=== PATIENT | female | born 1930 | race Caucasian/White ===

== ENCOUNTER → 2016-07-24 | Outpatient (REF) | payer MEDICARE, BC | LOC: M SFHCCLAY 07:19 | PROVIDERS: ATTEND Family Medicine | DX: E11.9 Type 2 diabetes mellitus without complications (principal); E78.2 Mixed hyperlipidemia ==

== ENCOUNTER 2016-11-23 09:09 | Inpatient (IN) | payer MEDICARE, BC ==
[~2016-11-23] VITALS: Ht 167.6 cm; Wt 75.3 kg
[2016-11-23] MEDS ORDERED: OMEP40CA2 PO (09:19)
[2016-11-23] MEDS ORDERED: TRIA37.5 PO (09:19)
[2016-11-23] MEDS ORDERED: ALLO10TA PO (09:19)
[2016-11-23] MEDS ORDERED: NS 500 ML IV ONE (10:00)
[2016-11-23 10:02] LABS: BASO % 0.7 % (0.0-1.0); EOS # 0.1 K/mm3 (0.0-0.50); EOS % 1.1 % (0.0-3.0); LARGE UNSTAINED CELL # 0.1 K/mm3 (0.0-0.4); LARGE UNSTAINED CELL % 1.7 % (0.0-4.0); LYMPH # 1.3 K/mm3 (1.5-4.5); LYMPH % 20.8 % (24.0-44.0); MEAN CORPUSCULAR HEMOGLOBIN 30.4 pg (27.0-33.0); MEAN CORPUSCULAR HGB CONC 33.3 g/dl (32.0-36.5); MEAN CORPUSCULAR VOLUME 91.2 fl (80.0-96.0); MONO # 0.3 K/mm3 (0.0-0.8); MONO % 5.9 % (0.0-5.0); NEUTROPHILS % 69.8 % (36.0-66.0); PLATELET COUNT, AUTOMATED 177 k/mm3 (150-450); RED CELL DISTRIBUTION WIDTH 14.3 % (11.5-14.5); WHITE BLOOD COUNT 5.7 K/mm3 (4.0-10.0)
[2016-11-23 10:08] LABS: INR 1.01
[2016-11-23 10:18] LABS: ALBUMIN 3.8 GM/DL (3.2-5.2); ALBUMIN/GLOBULIN RATIO 1.19 (1.00-1.93); BILIRUBIN,DIRECT 0.1 MG/DL (0.0-0.2); BILIRUBIN,TOTAL 0.4 MG/DL (0.2-1.0); CALCIUM LEVEL 9.8 MG/DL (8.8-10.2); CREATININE FOR GFR 1.29 MG/DL (0.55-1.02); GLOMERULAR FILTRATION RATE 41.5 (>32); POTASSIUM SERUM 3.9 MEQ/L (3.5-5.1)
[2016-11-23] MEDS ORDERED: ISOVUE-370 76% 100ML VIAL (Q9967) As Ordered ONE (10:21)
--- NOTE | 2016-11-23 11:28 | REP ---
CT abdomen and pelvis with IV but without oral contrast: History: Right lower quadrant pain. Dark stools. Comparison CT study August 03, 2006. CT contrast dose: 100 ml of Isovue [address] findings: Digital court monitor radiograph is unremarkable. The patient is rotated somewhat to the right. Cardiomegaly is observed. No pleural or pericardial effusion is seen. The liver and spleen are normal in size, homogeneous in texture. No adrenal lesion is seen. No pancreatic abnormality is observed. The gallbladder is unremarkable. There is a large descending duodenal diverticulum. There are bilateral renal cortical cysts. The largest of these is in the upper pole right kidney measuring 2.4 cm in diameter. No retroperitoneal mass or adenopathy is seen. Small and large intestinal bowel loops are normal in the abdomen. In the pelvis, there is extensive left colonic diverticulosis without CT evidence of diverticulitis. Scattered diverticulosis is seen in the descending and transverse segments of the colon. There is diverticulosis of the ascending colon as well. Uterus is surgically absent. No adnexal or ovarian abnormality is seen. The appendix is not directly visualized but there is no CT evidence to suggest appendicitis or other etiology of inflammation. No abdominal wall defect is seen. Bone window settings show degenerative lumbar spine changes. Impression: Large descending duodenal diverticulum. Very small hiatal hernia. Small renal cortical cysts. Pancolonic diverticulosis without CT evidence of diverticulitis. Post hysterectomy. Appendix not directly visualized but no inflammatory change in the right lower quadrant. Signed by Jay Chong MD 11/23/2016 12:51 P
[2016-11-23] MEDS ORDERED: PANTOPRAZOLE 40MG INJ (PROTONIX) (C9113) IV ONE (13:15)
[2016-11-23] MEDS ORDERED: SUCRALFATE 1 GM TAB PO ONE (13:15)
[2016-11-23] MEDS ORDERED: OMEP20CA3 PO (13:20)
[2016-11-23] MEDS ORDERED: ZYLO300T4 PO (13:20)
[2016-11-23] MEDS ORDERED: ACETAMINOPHEN TAB 650MG DOSE (2X325MG) PO PRN (13:30)
[2016-11-23] MEDS ORDERED: ONDANSETRON 4MG/2ML VIAL (J2405) IV PRN (13:30)
[2016-11-23 14:00] LABS: MEAN CORPUSCULAR HEMOGLOBIN 31.3 pg (27.0-33.0); MEAN CORPUSCULAR HGB CONC 34.1 g/dl (32.0-36.5); MEAN CORPUSCULAR VOLUME 91.8 fl (80.0-96.0); RED CELL DISTRIBUTION WIDTH 14.4 % (11.5-14.5); WHITE BLOOD COUNT 5.1 K/mm3 (4.0-10.0)
--- NOTE | 2016-11-23 14:27 | HPE ---
DATE OF ADMISSION: 11/23/2016 PRIMARY CARE PROVIDER: Dr. Pugh VIDEO RENTAL CLERK: Dr. Em and Dr. Pederson has also done endoscopies on her before. CHIEF COMPLAINT: Dizziness. HISTORY OF PRESENT ILLNESS: This is an 86-year-old who has not felt well for over a week. She has been feeling dizzy which she describes as lightheadedness. She felt as though she might pass out, but hasn't. She has been generally weak. She has been passing very black and smelly stools and then today passed some bright red blood per rectum. She came to the emergency department for evaluation. She had heme negative stool from below and was noted to have EKG changes. I was called for admission. Socially, she walks with a walker and does not drink any significant amount of alcohol. She does not smoke. Her physical activity is limited by left ankle weakness. PAST SURGICAL HISTORY: Notable for a hysterectomy thirty years ago. PAST MEDICAL HISTORY: Notable for hypertension, arthritis, gout, diabetes, hyperlipidemia. She has no known drug allergies. MEDICATIONS AT HOME (are listed as): - allopurinol 300 mg daily - hydrochlorothiazide/triamterene one tablet by mouth twice daily - omeprazole 40 mg by mouth daily She does not take aspirin on a daily basis. FAMILY HISTORY: Unremarkable due to advanced age. REVIEW OF SYSTEMS: Notable for no fever. She did have a cough a few weeks ago which was treated with apparently amoxicillin which has resolved. No headache. No visual changes. She does wear corrective lenses and upper and lower denture plates. No chest pain. No orthopnea. No paroxysmal nocturnal dyspnea. No palpitations. No abdominal pain. She is somewhat irregular in her bowel movements which is constant. There has been no change in her exercise tolerance. Otherwise is unremarkable. PHYSICAL EXAMINATION: Temperature 98 degrees. Pulse 68. Respiratory rate 16. Blood pressure 137/69. 97% on room air. Ins and outs notable for not yet being recorded. Body mass index (BMI) is 26. She is awake and appropriately interactive. Good historian. Head normocephalic. Sinuses are nontender. Pupils equally round and reactive. Anicteric. Not injected. Mucous membranes are moist. Neck supple. No obvious elevation in jugular venous pulse (JVP). Breathing is symmetrical. I:E ratio 1:3. No wheezes, rales or rhonchi. Speaking in complete sentences. No accessory muscle use. No costovertebral angle (CVA) tenderness. No sacral edema. Heart is distant sounding. Normal S1, S2. I appreciate no murmur, rub or gallop. Pulses are 2+. Capillary refill is less than 2 seconds. Abdomen soft, doughy, nontender to deep palpation. There are active bowel sounds. No lower extremity edema. She is moving all four extremities. Cranial nerves II-XII are grossly intact. She has normal mood and affect. White cell count 5.7, hemoglobin 13.8 and platelets of 177. INR 1.01. BUN 25, creatinine 1.29. Baseline creatine is probably 1.17. CK and troponin are within normal limits. EKG is compared to prior and would appear to show Q waves in the septum and ST elevations in the anterior region, which is new when compared to previous and is variable over the course of the day. ASSESSMENT: 86-year-old with suspected upper gastrointestinal (GI) bleed and possible subacute cardiac ischemic event. PLAN: 1. Cardiac. The patient would appear to have had at some time within the last week or two a cardiac event. Will get a 2D echocardiogram. The case has been discussed with the interventionalist, Dr. Rutledge, who has declined transfer and is suggesting medical management. I have consulted Dr. Cano for assistance in her care. Complicating her presentation is GI bleed. At this point, I am unsure whether her GI bleed is worsening based on her presentation, so will at this point not give aspirin, CYNDY inhibitor, or statin type drug and will monitor her clinically on telemetry as she is asymptomatic and does not appear to be worsening from a cardiac standpoint, but presented with more complaint of worsening bleeding from below. 2. GI bleed. The patient is started on Protonix and sucralfate. Role for upper endoscopy is somewhat limited based on her cardiac event which is suspected. Will pursue medical management in this regard as well. Assuming that her GI bleed and serial hemoglobin and hematocrit remain somewhat stable, we can proceed to more aggressive management of her cardiac event. 3. The patient has gout. Can continue her allopurinol. 4. The patient has hypertension. Likely her medications will need to be changed. 5. Deep vein thrombosis (DVT) prophylaxis with mechanical. I did discuss this case at length with family at bedside.
--- NOTE | 2016-11-23 14:31 | REP ---
PORTABLE CHEST X-RAY: SINGLE VIEW. HISTORY: Abnormal EKG. COMPARISON CHEST X-RAY: 09/04/2010 FINDINGS: EKG monitoring electrodes overlie the chest. The heart is moderately enlarged. It appears more prominent than on the 2010 prior study. Pulmonary vasculature is cephalized and somewhat indistinct. There is no evidence of pleural effusion or pulmonary edema. IMPRESSION: Moderate cardiomegaly. Pulmonary vascular cephalization consistent with some degree of CHF. No evidence of pleural effusion or pulmonary edema. Signed by Jay Chong MD 11/23/2016 04:43 P
[2016-11-23 15:30] VITALS: BP 143/70
[2016-11-23] MEDS ORDERED: SLF 3 ML SYR IV PRN (16:00)
[2016-11-23] MEDS: SUCRALFATE 1 GM TAB PO SCH ×2 (17:24→20:07)
[2016-11-23 19:44] VITALS: BP 118/60
--- NOTE | 2016-11-23 20:06 | CR ---
DATE: 11/23/2016 REFERRING PHYSICIAN: Dr. Markell Escalona INDICATION: Abnormal ECG. HISTORY OF PRESENT ILLNESS: Mrs. Marshall was brought to emergency room by her family earlier today because she had an episode of dizziness. Unfortunately I was not able to get any good description of what actually happened. It looks like the patient is living alone and she was doing some chores and suddenly got dizzy. She called her family and they brought her to the ER. She does think that she had some black stools lately and recently also occasionally red blood in her stools. On presentation to the ER, her CBC was unremarkable but 12-lead ECG reveals presence of anterior wall Q-waves with associated ST-segment elevations. She denies any chest discomfort today or in recent past. She tells me that she has to "slow down" because she is just not able to be as active as she used to be. She does admit that she was getting lightheaded to the point that she thought she might pass out but she never did. She denies any prior history of coronary artery disease. SURGICAL HISTORY: Positive for hysterectomy. PAST MEDICAL HISTORY: Positive for hypertension, arthritis, gout, type 2 diabetes and dyslipidemia. She also has a history of GI evaluation for rectal bleeding. OUTPATIENT MEDICATIONS: - allopurinol 300 daily - HCTZ/triamterene twice a day - omeprazole 40 mg a day FAMILY HISTORY: No longer relevant considering her advanced age. SOCIAL HISTORY: The patient is second time around, her second in June of this year. She never smoked. She used to work as a cook. REVIEW OF SYSTEMS: She denies any recent fever, chills, nausea, vomiting, diarrhea, shortness of breath or chest pain. She does report that she has intermittent episodes of dizziness but unfortunately, she is not able to describe under what circumstances it occurs. She does admit that she has occasional black stools and occasionally also has red blood in her stools. The rest of review of systems is negative or as per history of present illness (HPI). PHYSICAL EXAMINATION: Mrs. Marshall is an elderly lady. She is in good spirits and denies currently any symptoms. She can provide reasonably good history even though details are limited. Her vital signs: Blood pressure is 143/70, heart rate has been in 70s and 80s. She is afebrile. Saturation 97-98% on room air. Her JVP is not elevated. Lungs are clear to auscultation bilaterally with good air movement. Heart exam reveals somewhat muffled heart sounds related to her obesity. I do not appreciate any gallop, rub or murmur. JVP is not elevated and there are not carotid bruits. Abdomen is obese but soft. I do not appreciate any organomegaly, guarding. Bowel sounds are present. Extremities are free of edema. Peripheral pulses are of good quality. Neurologically she is alert and oriented and appropriate. LABORATORY DATA: Her CBC is normal. Basic metabolic panel revealed potassium 3.9, BUN 25, creatinine 1.3 for GFR 42, glucose 84, lactic acid 1.3, normal liver function tests, normal cardiac enzymes times two, albumin is 3.8. TSH 1.5. ECG as per HPI. She had CT of the abdomen and pelvis which reveals large duodenal diverticulum, small hiatal hernia and evidence for diverticulosis. She also had a chest x-ray that reveals cardiomegaly but no obvious congestive heart failure. ASSESSMENT/PLAN: Mrs. Marshall is an elderly woman without prior history of coronary artery disease. She presents for an episode of dizziness that is poorly described and complains about dark stools followed by some red blood in her stools. Somewhat coincidentally she is found to have fairly abnormal ECG indicative of probably recent anterior wall myocardial infarction, but she denies any event that would resemble myocardial infarction and denies any chest pain today or recently and her cardiac enzymes have been negative. I do agree that it is possible that this possibly could represent an aneurysm after VT. Her previous ECG from 2014 did not have similar abnormalities. I would monitor on telemetry. Will obtain an echocardiogram. I do not believe that she should receive aspirin because she had blood in her stools even though hemoglobin is fine. I would give her a statin and further management based on her clinical course.
[2016-11-23] MEDS: ATORVASTATIN 20 MG TAB PO SCH (20:07)
[2016-11-23] MEDS: SLF 3 ML SYR IV SCH (20:07)
[2016-11-23] MEDS: PANTOPRAZOLE 40MG INJ (PROTONIX) (C9113) IV SCH (20:07)
--- NOTE | 2016-11-23 20:54 | ECHO ---
DATE OF PROCEDURE: 11/23/2016 REFERRING PHYSICIAN: Dr. Escalona. INDICATION: Abnormal ECG. HEIGHT: 168 cm WEIGHT: 74 kg DIMENSIONS: IVS: 1.2 LV: 5.5 LVPW: 1.2 LA: 4.0 Aorta: 3.3 FINDINGS: The study is of good technical quality. Left ventricle is of normal size. There is extensive wall motion abnormality involving mid and distal septum, the whole apex, distal anterior wall, distal lateral wall and distal inferior wall. These segments are akinetic with thinning forming aneurysm. Overall estimated LV systolic function is in neighborhood of 20-25%. Right ventricle does not appear grossly enlarged is normally contractile. Left atrium is severely enlarged. Right atrium is probably normal size. Aortic valve is sclerotic and has three cusp and grossly preserved mobility. There are degenerative abnormalities of mitral valve with thickening of mitral leaflets and mitral annular calcifications. Mobility is preserved. Tricuspid valve appears normal. Pulmonic valve was not well seen. No pericardial effusion is noted. Inferior vena cava is normal size. Aortic root appears normal. Aortic arch and abdominal aorta were not well seen. Doppler interrogation was no aortic stenosis and mild insufficiency. There is approximately moderate mitral insufficiency likely related to left ventricle (LV ) dysfunction. There is mild tricuspid insufficiency. Calculated pulmonary artery pressure is on upper limits of normal. Values or mildly elevated. Mitral inflow pattern and tissue Doppler imaging of mitral annulus reveal grade 1 diastolic dysfunction. CONCLUSIONS: 1. Study is of good technical quality. 2. Normal LV size with segmental wall motion abnormality as noted above and large anteroapical aneurysm. 3. Normal right ventricle (RV) size. 4. Mild aortic insufficiency. 5. 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 6. Normal central venous pressure (CVP). 7. Normal mildly elevated pulmonary artery pressure under COMMENT: Subacute bacterial endocarditis (SBE) prophylaxis is not recommended. 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 MTDD
[2016-11-23 21:00] LABS: MEAN CORPUSCULAR HEMOGLOBIN 31.3 pg (27.0-33.0); MEAN CORPUSCULAR VOLUME 89.4 fl (80.0-96.0); RED CELL DISTRIBUTION WIDTH 14.3 % (11.5-14.5); WHITE BLOOD COUNT 5.6 K/mm3 (4.0-10.0)
[2016-11-23] MEDS: CARVedilol 3.125 MG TAB PO SCH (21:46)
[2016-11-23 23:28] VITALS: BP 116/58
[2016-11-24] MEDS: RAMELTEON 8 MG TAB (ROZEREM) PO SCH ×2 (01:57→22:46)
[2016-11-24 03:03] VITALS: BP 114/61
[2016-11-24 05:38] LABS: MEAN CORPUSCULAR HEMOGLOBIN 31.1 pg (27.0-33.0); MEAN CORPUSCULAR HGB CONC 33.9 g/dl (32.0-36.5); MEAN CORPUSCULAR VOLUME 91.6 fl (80.0-96.0); RED CELL DISTRIBUTION WIDTH 14.2 % (11.5-14.5)
[2016-11-24 05:52] LABS: CALCIUM LEVEL 9.1 MG/DL (8.8-10.2); CREATININE FOR GFR 1.08 MG/DL (0.55-1.02); MAGNESIUM LEVEL 2.2 MG/DL (1.8-2.4); POTASSIUM SERUM 3.5 MEQ/L (3.5-5.1)
[2016-11-24] MEDS: SLF 3 ML SYR IV SCH ×3 (06:23→20:55)
[2016-11-24] MEDS: SUCRALFATE 1 GM TAB PO SCH ×4 (06:23→20:57)
[2016-11-24 08:00] VITALS: BP 111/67
--- NOTE | 2016-11-24 08:06 | ECGEPIP ---
Stationary ECG Study [facility] - ED Test Date: 2016-11-23 Pat Name: REKHA RAY Department: Room: - Gender: F Chief Engineer'S Helper: rn : 1930 Requested By: RADHA Gallagher Order Number: [id number] Reading MD: Zoe West Measurements Intervals [place] Rate: 70 P: 26 ME: 157 QRS: -3 QRSD: 102 T: 103 QT: 390 QTc: 421 Interpretive Statements SINUS RHYTHM POSSIBLE LEFT VENTRICULAR HYPERTROPHY POSSIBLE ANTEROSEPTAL MYOCARDIAL INFARCTION, ACUTE, CLINICAL CORRELATION NO PRIOR FOR COMPARISON Electronically Signed On 11-24-2016 8:06:03 EDT by Zoe West
--- NOTE | 2016-11-24 08:07 | ECGEPIP ---
Stationary ECG Study [facility] - ED Test Date: 2016-11-23 Pat Name: REKHA RAY Department: Room: - Gender: F Patient Relations Specialist: : 1930 Requested By: RADHA Gallagher Order Number: [id number] Reading MD: Zoe West Measurements Intervals [place] Rate: 72 P: 55 DC: 153 QRS: 7 QRSD: 118 T: 100 QT: 415 QTc: 456 Interpretive Statements SINUS RHYTHM PROBABLE INFERIOR MYOCARDIAL INFARCTION, PROBABLY OLD ANTEROLATERAL MYOCARDIAL INFARCTION, ACUTE, SEEN 10:16 Electronically Signed On 11-24-2016 8:06:40 EDT by Zoe West
[2016-11-24] MEDS: PANTOPRAZOLE 40MG INJ (PROTONIX) (C9113) IV SCH ×2 (09:13→20:55)
[2016-11-24] MEDS: CARVedilol 3.125 MG TAB PO SCH ×2 (09:13→20:57)
[2016-11-24] MEDS: ASPIRIN 81 MG ENTERIC TAB PO SCH (09:13)
--- NOTE | 2016-11-24 11:06 | IPN ---
DATE: 11/24/2016 I saw Mrs. Marshall today on rounds. Her family was at her bedside, her son and [id number]. The patient had a good night. She denies any problems. She did not have any bowel movements. Blood pressure 111/67 and has been in similar range throughout. Heart rate mostly in the 60s and 70s. She is afebrile. Saturation 98% on room air. She did have brief run of accelerated idioventricular rhythm. Her JVP is not elevated. Lungs are clear with good air movement. Heart exam reveals regular rhythm. I do not appreciate any gallop, rub or murmur. Abdomen is obese, but soft and nontender. There is no peripheral edema. Neurologically she is intact. Laboratory lobo, normal CBC, normal basic metabolic panel, cardiac enzymes stayed negative and her lipid panel is excellent. ASSESSMENT/PLAN: Mrs. Marshall is an 86-year-old female who presents with some rectal bleeding and episodes of dizziness. 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 It is likely that she suffered myocardial event. I suspect at least several weeks if not several months ago. She has no recollection though of any event that would resemble myocardial infarction (ND). I explained to her, and her son and [id number], that unfortunately because there is already extensive damage, it is unlikely that pursuing cardiac catheterization would make a change in her prognosis. I think we should give her the best possible medical therapy. She is on aspirin, statin and a very small dose of Coreg. Her blood pressure is relatively soft and consequently, I would not necessarily give her CYNDY inhibitor of additional doses of medications. Considering her advanced age and probably life expectancy that is not very long, I do not see an indication for defibrillator placement. JOHANNA
[2016-11-24 12:00] VITALS: BP 113/58
--- NOTE | 2016-11-24 12:06 | ECGEPIP ---
Stationary ECG Study [facility] Test Date: 2016-11-24 Pat Name: REKHA RAY Department: Room: [place] [address] Gender: F Nuclear Test Technician: : 1930 Requested By: SKYLAR Ansari Order Number: [id number] Reading MD: Nader Cano Measurements Intervals [place] Rate: 65 P: 47 GA: 156 QRS: 5 QRSD: 112 T: 124 QT: 430 QTc: 449 Interpretive Statements SINUS RHYTHM ANTEROLATERAL MYOCARDIAL INFARCTION, PROBABLY RECENT NO CHANGE SINCE 11/23/16 Electronically Signed On 11-24-2016 12:06:18 EDT by Nader Cano
[2016-11-24 16:00] VITALS: BP 107/59
--- NOTE | 2016-11-24 18:03 | IPN ---
DATE: 11/24/2016 SUBJECTIVE: The patient is seen and examined in the room today. During encounter, the patient does not have any complaint about any symptoms. The patient stated prior to hospitalization, the patient was painting a porch that resulted in her dizziness. The patient had a colonoscopy done in the past, which the reason why is Dr. Pederson which was in December 2010. At the time, the dictation showed diverticulosis of entire colon. Since admission, the patient does not have any bowel movements, but the patient had a history of blood in the stool approximately 3-4 days ago. OBJECTIVE: VITAL SIGNS: Temperature is 96.8, pulse is 68, respirations 18, blood pressure 111/67, pulse oximetry is 98% on room air. GENERAL: No sign of acute distress, alert and oriented times three. HEENT: Normocephalic, atraumatic. Extraocular motor grossly intact. CARDIOVASCULAR: Positive S1, S2. Regular rate. LUNGS: Clear to auscultation bilaterally. ABDOMEN: Soft, nontender, nondistended. Bowel sounds present. EXTREMITIES: No edema, no sign of cyanosis. LABORATORY DATA: WBC is five, hemoglobin 12.5, hematocrit 36.7, platelet count is 173. Sodium is 137, potassium 3.9, chloride 99, carbon dioxide 28, BUN 16, creatinine 1.08, GFR 51, fasting glucose 96, calcium is 9.1. Magnesium 2.2. Troponin I is 0.02 times four sets. Triglycerides is 126, total cholesterol is 158, LDL is 78.8, HDL is 54. ASSESSMENT AND PLAN: 1. History of myocardial events. Troponin has been negative and suggests that the insult occurred many weeks ago. The patient presented with episode of dizziness. The electrocardiogram (EKG) and other diagnostic tests, the patient shown to have anterior apical aneurysm with severely reduced left ventricular dysfunction. Senior Commercial Loan Officer Dr. Cano has been consulted. We appreciate his assistance. He suspects the insult was a long time ago and the damage may be reversible. The patient is on aspirin, statin and Coreg. Due to the hypotension, angiotension-converting enzyme (CYNDY) inhibitor is on hold. At this moment, the patient does not benefit from cardiac catheterization. Continue pursuing with medical management. 2. Acute gastrointestinal (GI) bleed. Per patient, the patient noticed some blood per rectum. The patient is on Protonix and sucralfate. The patient had a colonoscopy performed by Dr. Pederson in 2010. According to that report, which showed the patient has diverticulosis of the whole colon. At that time, the patient was recommended to followup with endoscopist in two weeks. We will follow with the patient to see if there is any more colonoscopy that is not done in our facility. Will continue trending hemoglobin and hematocrit every six hours. At this moment, there is no significant drop in hemoglobin and hematocrit in the last 12-24 hours. 3. Gout. On allopurinol. 4. Hypertension. Currently the patient is mildly hypertensive. The patient is on Coreg. 5. Diabetes. At home, the patient is not taking any diabetic medications. The last two mornings, fasting glucose numbers are within normal range. The patient had A1c of 6.2 in July 2016. We will follow with repeat A1c. The patient's diabetes may have been resolved. Followup with A1c tomorrow morning. 6. Acute kidney injury. Improving. 7. Deep venous thrombosis (DVT) prophylaxis. Due to suspicion for acute GI bleed, no anticoagulation is warranted at this moment. The patient is on thromboembolism deterrent stockings (TEDs) and sequential compression devices.
[2016-11-24 20:00] VITALS: BP 108/57
[2016-11-24] MEDS: ATORVASTATIN 20 MG TAB PO SCH (20:55)
[2016-11-25 04:36] VITALS: BP 106/56
[2016-11-25 05:41] LABS: MEAN CORPUSCULAR HEMOGLOBIN 31.1 pg (27.0-33.0); MEAN CORPUSCULAR HGB CONC 34.2 g/dl (32.0-36.5); MEAN CORPUSCULAR VOLUME 91.1 fl (80.0-96.0); RED CELL DISTRIBUTION WIDTH 14.3 % (11.5-14.5); WHITE BLOOD COUNT 5.4 K/mm3 (4.0-10.0)
[2016-11-25 06:11] LABS: CALCIUM LEVEL 9.4 MG/DL (8.8-10.2); CREATININE FOR GFR 1.01 MG/DL (0.55-1.02); GLOMERULAR FILTRATION RATE 55.1 (>32); MAGNESIUM LEVEL 2.1 MG/DL (1.8-2.4); POTASSIUM SERUM 3.5 MEQ/L (3.5-5.1)
[2016-11-25] MEDS: SUCRALFATE 1 GM TAB PO SCH (06:22)
[2016-11-25] MEDS: SLF 3 ML SYR IV SCH (06:22)
[2016-11-25 08:00] VITALS: BP 124/61
[2016-11-25] MEDS: PANTOPRAZOLE 40MG INJ (PROTONIX) (C9113) IV SCH ×2 (09:00→09:36)
[2016-11-25 09:36] VITALS: BP 124/61
[2016-11-25] MEDS: ASPIRIN 81 MG ENTERIC TAB PO SCH (09:36)
[2016-11-25] MEDS: CARVedilol 3.125 MG TAB PO SCH (09:36)
[2016-11-25] MEDS ORDERED: SUCR1TA PO (10:05)
[2016-11-25] MEDS ORDERED: ATOR1TAB21 PO (10:05)
[2016-11-25] MEDS ORDERED: CARV3.12 PO (10:05)
[2016-11-25] MEDS ORDERED: PROT1TAB2 PO (10:05)
[2016-11-25] MEDS ORDERED: ASPI81TAEC PO (10:05)
--- NOTE | 2016-11-25 16:15 | DSES ---
DATE OF ADMISSION: 11/23/2016 DATE OF DISCHARGE: 11/25/2016 PRIMARY CARE PROVIDER: Dr. Pugh. CONSULTANTS: [employer] St[employer]cher, Dr. Cano. PROCEDURES: None. COMPLICATIONS: None. ADMISSION/DISCHARGE DIAGNOSES: 1. History of myocardial infarction. 2. Active gastrointestinal (GI) bleed. 3. Significant colonic diverticulosis. 4. Gout. 5. Hypertension. 6. History of diabetes. 7. Acute kidney injury. 8. Systolic congestive heart failure with ejection fraction (EF) of 20-25%. HOSPITALIZATION COURSE: The patient is an 86-year-old female who presented to [facility] on 11/23/2016, with dizziness. Diagnostic workup was performed, including electrocardiogram (EKG) and echocardiogram. The patient was shown to have findings suggestive of history of cardiac injury. [employer] Stretcher, Dr. Cano, was consulted. Cardiac enzymes were also ordered and followed. The patient was placed on nothing by mouth and intravenous (IV) fluids to monitor for the GI bleed. Hemoglobin and hematocrit were also followed every six hours. Later, serial troponins all came back negative, and the echocardiogram report showed the patient has congestive heart failure and some sign of prior myocardial infarction. With medical management, the patient's hemoglobin and hematocrit have been stable. No sign of active bleeding, and the patient's diet is advanced. The patient was cleared by physical therapy and discharged on 11/25/2106. The patient's record is reviewed. The patient does have a colonoscopy on December 12, 2010. The colonoscopy report showed diverticulosis of the entire examined colon, and the patient was recommended to followup with her GI specialist, Dr. Em. However, the patient did not have followup. OBJECTIVE: VITAL SIGNS: Temperature 96.8, pulse is 69, respirations 18, blood pressure 79904, pulse oximetry is 97% on room air. LABORATORY DATA: WBC is 5.4, hemoglobin 12.8, hematocrit 37.1, platelet count 176. Sodium is 133, potassium 3.5, chloride 96, carbon dioxide 30, BUN 14, creatinine 1.01. GFR is 55.1, fasting glucose 101. A1c is 6.4. Calcium 9.4, magnesium 2.1. Troponin I is 0.02 times four sets. Triglycerides 126, total cholesterol 158, LDL is 78.8, HDL is 54. TSH is 1.49. PT 13.4, INR is 1.01. IMAGING: CT of the abdomen and pelvis with IV contrast only on 11/23/2016, showed large descending duodenal diverticulum. Very small hiatal hernia. Small renocortical cyst. Pancolonic diverticulosis with CT image of diverticulitis. Chest x-ray on 11/23/2016, showed moderate cardiomegaly. Pulmonary vascular encephalization consistent with some degree of CHF. No evidence of pleural effusion or pulmonary edema. Echocardiogram on 11/23/2016, showed left ventricular systolic function between 20-25%. 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 DISCHARGE MEDICATIONS: - aspirin 81 mg by mouth daily - atorvastatin 40 mg by mouth at bedtime - carvedilol 3.125 mg by mouth twice a day - Protonix 40 mg by mouth daily - Carafate 1 gram by mouth before food and at bedtime - allopurinol 300 mg by mouth daily DISCHARGE INSTRUCTIONS: Discontinue lines. Discharge home. Activity as tolerated. Low-salt diet as tolerated. The patient should follow with her primary care provider, Ines in 1- 2 weeks. The patient needs to discuss the patient's history of GI bleed from pancolonic diverticulosis with provider. Her last scope was performed approximately eight years ago, and the patient did miss her appointment with the GI specialist for post-colonoscopy followup. The patient needs to discuss with her primary care provider regarding recent myocardial infarction episode. Based the diagnostic workup and history, the patient was not aware of that prior attack and the damage it was causing. The patient did have systolic congestive heart failure. The patient may benefit from cardiology outpatient followup. DISCHARGE CONDITION: Stable. DISCHARGE TIME: Greater than 30 minutes. MTDD
== END 2016-11-25 11:09 | disposition home or self-care (01) | DRG 314 ==
LOC: M ED 09:09 → M ED INP 13:16 → M PCU 15:12
PROVIDERS: ADMIT Internal Medicine; ATTEND Internal Medicine
DX: I25.3 Aneurysm of heart (principal); K57.31 Diverticulosis of large intestine without perforation or abscess with bleeding; I50.22 Chronic systolic (congestive) heart failure; N17.9 Acute kidney failure, unspecified; I11.0 Hypertensive heart disease with heart failure; M19.90 Unspecified osteoarthritis, unspecified site; M10.9 Gout, unspecified; I25.2 Old myocardial infarction; E11.9 Type 2 diabetes mellitus without complications; E78.5 Hyperlipidemia, unspecified; Z79.899 Other long term (current) drug therapy

== ENCOUNTER → 2017-01-25 | Outpatient (REF) | payer MEDICARE, BC ==
[~2017-01-25] MED LIST: ALLO10TA PO; ASPI81TAEC PO; ATOR1TAB21 PO; CARV3.12 PO; OMEP20CA3 PO; OMEP40CA2 PO; PROT1TAB2 PO; SUCR1TA PO; TRIA37.5 PO; ZYLO300T4 PO
== END ==
LOC: M SFHCCLAY 07:49
PROVIDERS: ATTEND Family Medicine
DX: E11.9 Type 2 diabetes mellitus without complications (principal); E78.2 Mixed hyperlipidemia

== ENCOUNTER 2017-03-04 12:21 | Day surgery (SDC) | payer MEDICARE, BC ==
[~2017-03-04] VITALS: Ht 167.6 cm; Wt 70.3 kg
[~2017-03-04 12:21] MED LIST changes: +LIDOCAINE 2% INJ 100 MG/5 ML SDV (FOR ANES.) As Ordered ONE; +PROPOFOL 200 MG/20 ML VIAL As Ordered ONE; +TRIA37.53 PO
[2017-03-04] MEDS ORDERED: NS 1,000 ML IV ONE (14:00)
--- NOTE | 2017-03-04 14:20 | ROOR ---
Patient Name: Court Marshall Procedure Date: 03/04/2017 1:54 PM Date of : 1930 Age: 86 Room: [facility] Gender: Female Note Status: Finalized Procedure: Total Colonoscopy to Cecum Indications: Last colonoscopy: 2006, Rectal bleeding Providers: Boris Em MD Referring MD: ASA MCPHERSON DO Requesting Provider: Medicines: Monitored Anesthesia Care Complications: No immediate complications. Procedure: Pre-Anesthesia Assessment: - The heart rate, respiratory rate, oxygen saturations, blood pressure, adequacy of pulmonary ventilation, and response to care were monitored throughout the procedure. The Colonoscope was introduced through the anus and advanced to the cecum, identified by appendiceal orifice and ileocecal valve. The colonoscopy was performed without difficulty. The patient tolerated the procedure well. The quality of the bowel preparation was poor. Findings: The perianal and digital rectal examinations were normal. External and internal hemorrhoids were found during retroflexion. The hemorrhoids were small and Grade I (internal hemorrhoids that do not prolapse). Scattered small-mouthed diverticula were found in the recto-sigmoid colon, sigmoid colon and descending colon. A moderate amount of stool was found in the entire colon, precluding visualization. The exam was otherwise without abnormality on direct and retroflexion views. Impression: - Preparation of the colon was poor. - External and internal hemorrhoids. - Diverticulosis in the recto-sigmoid colon, in the sigmoid colon and in the descending colon. - Stool in the entire examined colon. - The examination was otherwise normal on direct and retroflexion views. - No specimens collected. - The exam was otherwise normal to the cecum. Recommendation: - Patient has a contact number available for emergencies. The signs and symptoms of potential delayed complications were discussed with the patient. Return to normal activities tomorrow. Written discharge instructions were provided to the patient. - High fiber diet. - Discharge patient to home. - Continue present medications. - Repeat colonoscopy for symptoms only. - Return to referring physician. - The findings and recommendations were discussed with the patient's family. Boris Em MD Boris Em MD 03/04/2017 2:19:30 PM This report has been signed electronically. Number of Addenda: 0 Note Initiated On: 03/04/2017 1:54 PM Estimated Blood Loss: Estimated blood loss: none.
[2017-03-04 14:50] VITALS: BP 120/77
== END 2017-03-04 14:55 | disposition home or self-care (01) ==
LOC: M OPP 12:21
PROVIDERS: ATTEND Internal Medicine Gastroenterology
DX: K62.5 Hemorrhage of anus and rectum (principal); Z86.010 Personal history of colon polyps; K64.0 First degree hemorrhoids; K57.30 Diverticulosis of large intestine without perforation or abscess without bleeding; I25.2 Old myocardial infarction; I10 Essential (primary) hypertension; R12 Heartburn; K21.9 Gastro-esophageal reflux disease without esophagitis; K29.70 Gastritis, unspecified, without bleeding; Z78.0 Asymptomatic menopausal state; Z79.899 Other long term (current) drug therapy

== ENCOUNTER → 2017-07-24 | Outpatient (REF) | payer MEDICARE, BC ==
[2017-07-24 17:23] LABS: ALBUMIN 3.9 GM/DL (3.2-5.2); ALKALINE PHOSPHATASE 73 U/L (45-117); ALT/SGPT 18 U/L (12-78); ANION GAP 6 MEQ/L (8-16); AST/SGOT 18 U/L (7-37); BILIRUBIN,TOTAL 0.6 MG/DL (0.2-1.0); BLOOD UREA NITROGEN 20 MG/DL (7-18); CALCIUM LEVEL 9.5 MG/DL (8.8-10.2); CARBON DIOXIDE LEVEL 32 MEQ/L (21-32); CHLORIDE LEVEL 100 MEQ/L (98-107); CHOLESTEROL LEVEL 157 MG/DL (<200); CHOLESTEROL RISK RATIO 2.616 (<5); CREATININE FOR GFR 1.11 MG/DL (0.55-1.30); GLOMERULAR FILTRATION RATE 49.3 (>32); GLUCOSE, FASTING 103 MG/DL (70-100); HDL CHOLESTEROL 60 MG/DL (>40); LDL CHOLESTEROL 79.2 MG/DL (<100); NON-HDL-C 97 MG/DL; POTASSIUM SERUM 3.6 MEQ/L (3.5-5.1); SODIUM LEVEL 138 MEQ/L (136-145); TOTAL PROTEIN 6.9 GM/DL (6.4-8.2); TRIGLYCERIDES LEVEL 89 MG/DL (<150)
[2017-07-24 20:26] LABS: ESTIMATED AVERAGE GLUCOSE 131 MG/DL (60-110); HEMOGLOBIN A1c 6.2 %
== END ==
LOC: M SFHCCLAY 09:25
DX: I10 Essential (primary) hypertension (principal); E11.9 Type 2 diabetes mellitus without complications; E78.2 Mixed hyperlipidemia
CPT/HCPCS: 84443

== ENCOUNTER 2017-12-10 19:02 | Emergency (ER) | payer MEDICARE, BC ==
[2017-12-10 20:26] LABS: BASO % 0.4 % (0.0-1.0); EOS # 0.1 10^3/uL (0.0-0.50); EOS % 1.4 % (0.0-3.0); HEMATOCRIT 37.4 % (36.0-47.0); HEMOGLOBIN 12.4 g/dl (12.0-15.5); IMMATURE GRANULOCYTE % 0.4 % (0-3.0); LYMPH # 1.4 10^3/uL (1.5-4.5); LYMPH % 19.2 % (24.0-44.0); MEAN CORPUSCULAR HGB CONC 33.2 g/dl (32.0-36.5); MEAN CORPUSCULAR VOLUME 90.6 fl (80.0-96.0); MONO # 0.4 10^3/uL (0.0-0.8); MONO % 4.9 % (0.0-5.0); NEUTROPHILS # 5.2 10^3/uL (1.8-7.7); NEUTROPHILS % 73.7 % (36.0-66.0); PLATELET COUNT, AUTOMATED 166 10^3/uL (150-450); RED BLOOD COUNT 4.13 10^6/uL (4.00-5.40); RED CELL DISTRIBUTION WIDTH 14.7 % (11.5-14.5); WHITE BLOOD COUNT 7.1 10^3/uL (4.0-10.0)
[2017-12-10 20:29] LABS: INR 1.06; PROTHROMBIN TIME 13.9 SECONDS (12.1-14.4)
[2017-12-10] MEDS: NS 1,000 ML IV (20:40)
[2017-12-10] MEDS: METOCLOPRAMIDE INJ 10MG/2ML VIAL (J2765) IV (20:40)
[2017-12-10 20:43] LABS: ALBUMIN 3.8 GM/DL (3.2-5.2); ALBUMIN/GLOBULIN RATIO 1.31 (1.00-1.93); ALT/SGPT 18 U/L (12-78); ANION GAP 9 MEQ/L (8-16); AST/SGOT 28 U/L (7-37); BILIRUBIN,DIRECT 0.2 MG/DL (0.0-0.2); BILIRUBIN,TOTAL 0.7 MG/DL (0.2-1.0); BLOOD UREA NITROGEN 16 MG/DL (7-18); CALCIUM LEVEL 9.5 MG/DL (8.8-10.2); CARBON DIOXIDE LEVEL 30 MEQ/L (21-32); CHLORIDE LEVEL 93 MEQ/L (98-107); CPK CREATINE PHOSPHOKINASE 86 U/L (26-192); CREATININE FOR GFR 1.01 MG/DL (0.55-1.30); GLOMERULAR FILTRATION RATE 54.9 (>32); GLUCOSE, FASTING 128 MG/DL (70-100); POTASSIUM SERUM 4.3 MEQ/L (3.5-5.1); SALICYLATE LEVEL < 1.7 MG/DL (5.0-30.0); SODIUM LEVEL 132 MEQ/L (136-145); TOTAL PROTEIN 6.7 GM/DL (6.4-8.2); TROPONIN I 0.07 NG/ML (< 0.10)
[2017-12-10 20:45] LABS: POS COUNT POS FLAG
[2017-12-10 20:49] LABS: ALKALINE PHOSPHATASE 70 U/L (45-117); CK-MB VALUE MASS 2.2 NG/ML (<3.6); MB/CK RELATIVE INDEX 2.55 (< OR =4)
[2017-12-10 21:02] LABS: BEDSIDE GLUCOSE 124 MG/DL (83-110)
[2017-12-10 21:12] LABS: ACETAMINOPHEN LEVEL < 2.0 UG/ML (10.0-30.0)
[2017-12-10 23:42] LABS: CPK CREATINE PHOSPHOKINASE 56 U/L (26-192); MB/CK RELATIVE INDEX 3.57 (< OR =4); TROPONIN I 0.06 NG/ML (< 0.10)
== END 2017-12-10 23:57 | disposition home or self-care (01) ==
LOC: M ED 19:02
DX: R51 Headache (principal); I10 Essential (primary) hypertension; I25.10 Atherosclerotic heart disease of native coronary artery without angina pectoris; K21.9 Gastro-esophageal reflux disease without esophagitis; I25.2 Old myocardial infarction; Z87.19 Personal history of other diseases of the digestive system; Z79.899 Other long term (current) drug therapy; Z79.82 Long term (current) use of aspirin
CPT/HCPCS: J2765

== ENCOUNTER 2017-12-18 07:37 | Emergency (ER) | payer MEDICARE, BC ==
[2017-12-18 08:06] LABS: BASO % 0.3 % (0.0-1.0); EOS # 0.1 10^3/uL (0.0-0.50); EOS % 1.3 % (0.0-3.0); HEMATOCRIT 36.6 % (36.0-47.0); HEMOGLOBIN 12.1 g/dl (12.0-15.5); IMMATURE GRANULOCYTE % 0.6 % (0-3.0); LYMPH # 1.2 10^3/uL (1.5-4.5); LYMPH % 17.1 % (24.0-44.0); MEAN CORPUSCULAR HEMOGLOBIN 30.5 pg (27.0-33.0); MEAN CORPUSCULAR HGB CONC 33.1 g/dl (32.0-36.5); MEAN CORPUSCULAR VOLUME 92.2 fl (80.0-96.0); MONO # 0.4 10^3/uL (0.0-0.8); MONO % 5.6 % (0.0-5.0); NEUTROPHILS # 5.1 10^3/uL (1.8-7.7); NEUTROPHILS % 75.1 % (36.0-66.0); PLATELET COUNT, AUTOMATED 159 10^3/uL (150-450); RED BLOOD COUNT 3.97 10^6/uL (4.00-5.40); WHITE BLOOD COUNT 6.8 10^3/uL (4.0-10.0)
[2017-12-18] MEDS: IPRATROPIUM 0.5MG/ALBUTEROL 2.5MG INH SOL UD 3ML (DUONEB)(J7620) NEB (08:16)
[2017-12-18 08:25] LABS: ANION GAP 8 MEQ/L (8-16); BLOOD UREA NITROGEN 17 MG/DL (7-18); CALCIUM LEVEL 9.5 MG/DL (8.8-10.2); CARBON DIOXIDE LEVEL 30 MEQ/L (21-32); CHLORIDE LEVEL 94 MEQ/L (98-107); CREATININE FOR GFR 1.08 MG/DL (0.55-1.30); GLOMERULAR FILTRATION RATE 50.9 (>32); GLUCOSE, FASTING 136 MG/DL (70-100); POTASSIUM SERUM 4.2 MEQ/L (3.5-5.1); SODIUM LEVEL 132 MEQ/L (136-145)
[2017-12-18 09:03] LABS: CPK CREATINE PHOSPHOKINASE 63 U/L (26-192); MB/CK RELATIVE INDEX 6.67 (< OR =4); NT-PRO BNP 14715 PG/ML (<450); TROPONIN I 0.82 NG/ML (< 0.10)
[2017-12-18] MEDS: FUROSEMIDE 40 MG/4 ML VIAL (J1940) IV (10:56)
== END 2017-12-18 12:19 | disposition short-term general hospital (02) ==
LOC: M ED 07:37
DX: I21.4 Non-ST elevation (NSTEMI) myocardial infarction (principal); I50.9 Heart failure, unspecified; J91.8 Pleural effusion in other conditions classified elsewhere; I25.2 Old myocardial infarction; E11.9 Type 2 diabetes mellitus without complications; I10 Essential (primary) hypertension; E78.5 Hyperlipidemia, unspecified; M19.90 Unspecified osteoarthritis, unspecified site; M10.9 Gout, unspecified; Z87.19 Personal history of other diseases of the digestive system; Z79.82 Long term (current) use of aspirin; Z79.899 Other long term (current) drug therapy
CPT/HCPCS: J1940

== ENCOUNTER → 2018-01-14 | Outpatient (REF) | payer BC, MEDICARE ==
[2018-01-14 12:10] LABS: ALBUMIN 3.6 GM/DL (3.2-5.2); ANION GAP 6 MEQ/L (8-16); BLOOD UREA NITROGEN 19 MG/DL (7-18); CALCIUM LEVEL 8.9 MG/DL (8.8-10.2); CARBON DIOXIDE LEVEL 32 MEQ/L (21-32); CHLORIDE LEVEL 105 MEQ/L (98-107); CREATININE FOR GFR 1.14 MG/DL (0.55-1.30); GLOMERULAR FILTRATION RATE 47.8 (>32); GLUCOSE, FASTING 111 MG/DL (70-100); MAGNESIUM LEVEL 2.2 MG/DL (1.8-2.4); POTASSIUM SERUM 3.7 MEQ/L (3.5-5.1); SODIUM LEVEL 143 MEQ/L (136-145)
== END ==
LOC: M LABDRAWC 11:26
DX: I50.42 Chronic combined systolic (congestive) and diastolic (congestive) heart failure (principal)
CPT/HCPCS: 83735

== ENCOUNTER → 2018-01-24 | Outpatient (REF) | payer MEDICARE, BC ==
[2018-01-24 16:25] LABS: BASO % 0.7 % (0.0-1.0); EOS # 0.1 10^3/uL (0.0-0.50); EOS % 2.9 % (0.0-3.0); HEMATOCRIT 38.1 % (36.0-47.0); IMMATURE GRANULOCYTE % 0.4 % (0-3.0); LYMPH # 1.4 10^3/uL (1.5-4.5); LYMPH % 30.9 % (24.0-44.0); MEAN CORPUSCULAR HEMOGLOBIN 30.1 pg (27.0-33.0); MEAN CORPUSCULAR HGB CONC 31.5 g/dl (32.0-36.5); MEAN CORPUSCULAR VOLUME 95.5 fl (80.0-96.0); MONO # 0.3 10^3/uL (0.0-0.8); MONO % 5.8 % (0.0-5.0); NEUTROPHILS # 2.6 10^3/uL (1.8-7.7); NEUTROPHILS % 59.3 % (36.0-66.0); RED BLOOD COUNT 3.99 10^6/uL (4.00-5.40); RED CELL DISTRIBUTION WIDTH 15.9 % (11.5-14.5); WHITE BLOOD COUNT 4.5 10^3/uL (4.0-10.0)
[2018-01-24 16:27] LABS: ANION GAP 6 MEQ/L (8-16); BLOOD UREA NITROGEN 31 MG/DL (7-18); CALCIUM LEVEL 9.1 MG/DL (8.8-10.2); CARBON DIOXIDE LEVEL 33 MEQ/L (21-32); CHLORIDE LEVEL 105 MEQ/L (98-107); CREATININE FOR GFR 1.31 MG/DL (0.55-1.30); GLOMERULAR FILTRATION RATE 40.7 (>32); GLUCOSE, FASTING 120 MG/DL (70-100); POTASSIUM SERUM 3.9 MEQ/L (3.5-5.1); SODIUM LEVEL 144 MEQ/L (136-145)
[2018-01-24 16:49] LABS: ESTIMATED AVERAGE GLUCOSE 134 MG/DL (60-110); HEMOGLOBIN A1c 6.3 %
== END ==
LOC: M SFHCCLAY 09:49
DX: N18.3 Chronic kidney disease, stage 3 (moderate) (principal); Z79.899 Other long term (current) drug therapy
CPT/HCPCS: 83036